=== PATIENT | male | born 1950 | race Caucasian/White ===

== ENCOUNTER 2023-03-31 14:06 | Emergency (ER) | payer MEDICARE ==
[~2023-03-31] VITALS: Ht 175.3 cm; Wt 84.8 kg
[2023-03-31 14:10] VITALS: BP_SYST 203; PULSE 70; RESP 19; TEMP 98; O2SAT 100
[2023-03-31] MEDS ORDERED: iohexoL 350 mgI/mL, 100 ML INFUS..BTL IV ONE (14:19)
[2023-03-31] MEDS ORDERED: hydrALAZINE HCL 20 MG/ML VIAL IVP ONE (14:45)
[2023-03-31] MEDS ORDERED: ASPIRIN 81 MG TAB.CHEW PO ONE (15:00)
[2023-03-31] MEDS ORDERED: CLOPIDOGREL BISULFATE 75 MG TABLET PO ONE (15:00)
[2023-03-31 15:09] LABS: BASOPHILS % (AUTO) 0.5 % (0.0-2.0); EOSINOPHILS # (AUTO) 0.2 K/uL (0.0-0.4); HEMOGLOBIN 17.1 g/dL (14.0-18.0); LYMPHOCYTES # (AUTO) 2.7 K/uL (1.0-5.5); LYMPHOCYTES % (AUTO) 47.9 % (20.5-51.5); MEAN CORPUSCULAR HEMOGLOBIN 32 pg (27-31); MEAN CORPUSCULAR HGB CONC 35 % (32-36); MEAN CORPUSCULAR VOLUME 92 fL (79.0-98.0); MONOCYTES # (AUTO) 0.4 K/uL (0.0-1.0); MONOCYTES % (AUTO) 7.7 % (1.7-9.3); NEUTROPHILS # (AUTO) 2.3 K/uL (1.8-7.7); NEUTROPHILS % (AUTO) 40.9 % (40.0-70.0); PLATELET COUNT (AUTO) 145 K/uL (130-430); RED BLOOD CELL COUNT(AUTO) 5.31 MIL/uL (4.2-6.2); RED CELL DISTRIBUTION WIDTH 13.4 % (9.0-15.0); WHITE BLOOD COUNT (AUTO) 5.7 K/uL (4.8-10.8)
[2023-03-31 15:23] LABS: PROTHROMBIN TIME 10.3 SECS (9.5-12.5)
[2023-03-31 15:24] LABS: ANION GAP 7 (5-15); CALCIUM 8.2 mg/dL (8.4-11.0); CARBON DIOXIDE 27 mmol/L (23-29); CHLORIDE 104 mmol/L (98-107); CREATININE 0.83 mg/dL (0.55-1.30); GLUCOSE 106 mg/dL (74-106); POTASSIUM 3.7 mmol/L (3.5-5.1); SODIUM SERUM 138 mmol/L (136-145); UREA NITROGEN, BLOOD 9 mg/dL (8-21)
[2023-03-31 15:31] LABS: ALANINE AMINOTRANSFERASE 46 U/L (12-78); ALBUMIN 3.5 g/dL (3.4-4.8); ASPARTATE AMINOTRANSFERASE 22 U/L (10-37); BILIRUBIN,DIRECT 0.2 mg/dL (0.0-0.3); CHOLESTEROL 192 mg/dL (<200); HDL CHOLESTEROL 41 mg/dL (>45); LIPASE 50 U/L (16-77); TOTAL BILIRUBIN 1.3 mg/dL (0.0-1.0); TOTAL PROTEIN, SERUM 6.6 g/dL (6.4-8.3); TRIGLYCERIDES 245 mg/dL (30-150)
[2023-03-31 16:53] LABS: HEMOGLOBIN A1C 5.63 % (<5.7)
[2023-03-31 17:49] LABS: BILIRUBIN,URINE NEGATIVE (NEGATIVE); BLOOD, URINE NEGATIVE (NEGATIVE); CLARITY/URINE CLEAR (CLEAR); COLOR,URINE YELLOW (YELLOW); GLUCOSE,URINE NEGATIVE (NEGATIVE); KETONES,URINE NEGATIVE (NEGATIVE); LEUKOCYTE ESTERASE ,URINE NEGATIVE (NEGATIVE); NITRITE, URINE NEGATIVE (NEGATIVE); PROTEIN URINE NEGATIVE (NEGATIVE); UROBILINOGEN,URINE 0.2 (0.2-1.0)
[2023-03-31 18:00] LABS: BARBITURATE, URINE NEGATIVE (NEG <=200); BENZODIAZEPINE, URINE NEGATIVE (NEG <=150); CANNABINOID, URINE NEGATIVE (NEG <=50); COCAINE, URINE NEGATIVE (NEG <=150); METHAMPHETAMINES SCREEN,URINE NEGATIVE (NEG <=500); OPIATE, URINE NEGATIVE (NEG <=100); PHENCYCLIDINE SCREEN,URINE NEGATIVE (NEG <=25); URINE AMPHETAMINE NEGATIVE (NEG <=500); URINE METHADONE NEGATIVE (NEG <=200); URINE OXYCODONE SCREEN NEGATIVE (NEG <=100)
[2023-03-31 18:01] LABS: UR TRICYCLIC ANTIDEPRESSANTS NEGATIVE (NEG <=300)
[2023-03-31] MEDS ORDERED: ATORVASTATIN 20 MG TABLET PO ONE (19:00)
[2023-03-31 21:55] VITALS: BP_SYST 172; PULSE 80; RESP 19; TEMP 98.8; O2SAT 95
== END 2023-03-31 21:57 | disposition short-term general hospital (02) ==
LOC: SED 14:06
DX: G45.9 Transient cerebral ischemic attack, unspecified (principal); I16.0 Hypertensive urgency; E78.5 Hyperlipidemia, unspecified; I49.3 Ventricular premature depolarization; K21.9 Gastro-esophageal reflux disease without esophagitis; R47.81 Slurred speech; Z79.899 Other long term (current) drug therapy
CPT/HCPCS: 99291; 70496; 96374; 71045; 80061; 80307; 80076; 80048; 82962; 83037; 83690; 85025; 85610; 85730; 86886; 86900; 86901; 84484; 36415; 93005; 70498; 81003; 81001; 70450; 76376; Q9967; J0360